=== PATIENT | female | born 1995 | race Caucasian/White ===

== ENCOUNTER 2017-03-25 16:32 | Emergency (ER) | payer OTHER ==
[2017-03-25 17:11] LABS: BILIRUBIN NEGATIVE (NEGATIVE); BLOOD NEGATIVE (NEGATIVE); CLARITY CLEAR (CLEAR); COLOR YELLOW (YELLOW); GLUCOSE NEGATIVE (NEGATIVE); KETONE NEGATIVE (NEGATIVE); LEUKO ESTERASE 2+ (NEGATIVE); NITRITE NEGATIVE (NEGATIVE); PH 5.5 (5.0-9.0); PROTEIN NEGATIVE (NEGATIVE); UROBILINOGEN 0.2 E.U./dl (0.2-1.0)
[2017-03-25 17:29] LABS: BACTERIA TRACE; EPITHELIAL CELLS 15-20
[2017-03-25] MEDS ORDERED: MACROBID100 M1 PO (17:37)
== END 2017-03-25 21:56 | disposition home or self-care (01) ==
LOC: ED 16:32
PROVIDERS: Nurse Practitioner Family
DX: O23.41 Unspecified infection of urinary tract in pregnancy, first trimester (principal); F17.210 Nicotine dependence, cigarettes, uncomplicated; F12.10 Cannabis abuse, uncomplicated; Z3A.01 Less than 8 weeks gestation of pregnancy

== ENCOUNTER → 2019-07-26 | Outpatient (CLI) | payer BC ==
[~2019-07-26] MED LIST: MACROBID100 M1 PO
== END | disposition home or self-care (01) ==
LOC: CARD 12:43
DX: Z51.81 Encounter for therapeutic drug level monitoring (principal); Z79.899 Other long term (current) drug therapy

== ENCOUNTER → 2020-07-29 | Outpatient (CLI) | payer BC, OTHER | END | disposition home or self-care (01) | LOC: CARD 15:14 | PROVIDERS: ATTEND Nurse Practitioner Family | DX: Z51.81 Encounter for therapeutic drug level monitoring (principal); Z79.899 Other long term (current) drug therapy ==

== ENCOUNTER → 2021-12-17 | Outpatient (CLI) | payer OTHER | END | disposition home or self-care (01) | LOC: LAB 10:37 | PROVIDERS: ATTEND Nurse Practitioner | DX: N91.2 Amenorrhea, unspecified (principal) ==